=== PATIENT | male | born 1955 | race American Indian/Alaskan Native ===

== ENCOUNTER 2019-09-30 13:09 | Emergency (ER) | payer SELFPAY ==
[2019-09-30] MEDS ORDERED: IBUPROFEN 600 MG TAB PO ONE ×2 (13:21→13:23)
--- NOTE | 2019-09-30 14:09 | XRay Report ---
.LEFT FINGERS, 3 VIEWS INDICATION: TRUMATIC CRUSH INJURY TO FINGER. COMPARISON: None. IMPRESSION: Mildly comminuted fracture of the distal phalanx of the fourth digit is identified. The remaining bony structures and joint spaces are unremarkable. No significant DJD. Signer Name: Papo Watkins Jr, MD Signed: 09/30/2019 2:04 PM Workstation Name: [id number]
[2019-09-30] MEDS ORDERED: LIDOCAINE (1%) 10 MG/1 ML VIAL 20 ML MDV INFILTRATI ONE (16:41)
--- NOTE | 2019-09-30 17:39 | Emergency Department Report ---
ED Extremity Problem HPI - General Chief complaint: Extremity Injury, Upper Stated complaint: FINGER INJURY Time Seen by Provider: 09/30/19 15:22 Source: patient Mode of arrival: Ambulatory Limitations: No Limitations - History of Present Illness Initial comments: She is a 63-year-old -[place] male who is at a house doing some work and a window that was opened fell shut onto his hand. Patient suffered a injury to the left fourth digit. Patient states the finger was almost chopped off. Patient is an 10 out of 10 pain on arrival but During My Assessment Patient States That His Pain Was Improved Severity scale (0 -10): 1 - Related Data Previous Rx's Medication Instructions Recorded Last Taken Type Amoxicillin/Potassium Clav 1 each PO BID #14 tablet 09/30/19 Unknown Rx [Augmentin 875-125 Tablet] HYDROcodone/APAP 5-325 [[place] 1 each PO Q6HR PRN #14 tablet 09/30/19 Unknown Rx 5/325] Ibuprofen [Motrin 600 MG tab] 600 mg PO Q8H PRN #20 tablet 09/30/19 Unknown Rx Allergies Allergy/AdvReac Type Severity Reaction Status Date / Time No Known Allergies Allergy Unverified 09/30/19 13:17 ED Review of Systems ROS: Stated complaint: FINGER INJURY Other details as noted in HPI Comment: All other systems reviewed and negative ED Past Medical Hx - Past Medical History Previous Medical History?: Yes Hx Hypertension: Yes - Surgical History Past Surgical History?: No - Social History Smoking Status: Never Smoker Substance Use Type: None - Medications Home Medications: Home Medications Medication Instructions Recorded Confirmed Last Taken Type Amoxicillin/Potassium Clav 1 each PO BID #14 tablet 09/30/19 Unknown Rx [Augmentin 875-125 Tablet] HYDROcodone/APAP 5-325 [[place] 1 each PO Q6HR PRN #14 tablet 09/30/19 Unknown Rx 5/325] Ibuprofen [Motrin 600 MG tab] 600 mg PO Q8H PRN #20 tablet 09/30/19 Unknown Rx ED Physical Exam - General Limitations: No Limitations General appearance: alert, in no apparent distress - Head Head exam: Present: atraumatic, normocephalic - Eye Eye exam: Present: normal appearance, PERRL, EOMI - ENT ENT exam: Present: mucous membranes moist - Neck Neck exam: Present: normal inspection - Respiratory Respiratory exam: Present: normal lung sounds bilaterally. Absent: respiratory distress, wheezes, rales, rhonchi - Cardiovascular Cardiovascular Exam: Present: regular rate, normal rhythm. Absent: systolic murmur, diastolic murmur, rubs, gallop - GI/Abdominal GI/Abdominal exam: Present: soft, normal bowel sounds - Rectal Rectal exam: Present: deferred - Extremities Exam Extremities exam: Present: normal inspection, other (his left fourth digit shows a partial avulsion. The base of the nail the nail is pulled from the nail. There is a laceration going around the finger) - Back Exam Back exam: Present: normal inspection - Neurological Exam Neurological exam: Present: alert, oriented X3 - Psychiatric Psychiatric exam: Present: normal affect, normal mood - Skin Skin exam: Present: warm, dry, intact, normal color. Absent: rash ED Course Vital Signs 09/30/19 09/30/19 09/30/19 13:20 13:23 17:21 Temperature 97.7 F Pulse Rate 82 Respiratory 18 18 18 Rate Blood Pressure 181/102 O2 Sat by Pulse 100 97 Oximetry ED Medical Decision Making - Radiology Data LEFT FINGERS, 3 VIEWS INDICATION: TRUMATIC CRUSH INJURY TO FINGER. COMPARISON: None. IMPRESSION: Mildly comminuted fracture of the distal phalanx of the fourth digit is identified. The remaining bony structures and joint spaces are unremarkable. No significant DJD. Signer Name: Papo Gonzales Jr, MD Signed: 09/30/2019 2:04 PM Workstation Name: [id number] Transcribed By: TTR Dictated By: PAPO GONZALES JR, MD Electronically Authenticated By: PAPO GONZALES JR, MD Signed Date/Time: 09/30/19 1404 Critical care attestation.: If time is entered above; I have spent that time in minutes in the direct care of this critically ill patient, excluding procedure time. ED Disposition Clinical Impression: Finger laceration, Open finger fracture Disposition: DC- TO HOME OR SELFCARE Is pt being admited?: No Does the pt Need Aspirin: No Condition: Stable Instructions: Suture Care (ED), Finger Laceration (ED), Finger Fracture (ED) Additional Instructions: Sutures should be removed in one week Referrals: OPAL BARCLAY MD [Staff Physician] - 3-5 Days Time of Disposition: 17:39
[2019-09-30 18:17] VITALS: BP 166/103
== END 2019-09-30 18:12 | disposition home or self-care (01) ==
LOC: ED 13:09
DX: S62.635B Displaced fracture of distal phalanx of left ring finger, initial encounter for open fracture (principal); W20.8XXA Other cause of strike by thrown, projected or falling object, initial encounter; Y93.89 Activity, other specified; Y92.89 Other specified places as the place of occurrence of the external cause; Y99.8 Other external cause status